=== PATIENT | female | born 1995 | race Caucasian/White ===

== ENCOUNTER 2019-11-11 10:41 | Emergency (ER) | payer OTHER ==
[~2019-11-11] VITALS: Ht 154.9 cm; Wt 90.7 kg
[2019-11-11 10:43] VITALS: BP 134/80
--- NOTE | 2019-11-11 11:01 | NUR ---
24 YEAR OLD FEMALE COMPLAINS OF DIZZINESS X 2 WEEKS. PT STATES SHE HAS BEEN FEELING MORE WEAK AND TIRED WELL. PT REGINA FITZPATRICK HAS DIABETES AND HAS CONCERNS BECAUSE HER BLOOD SUGAR WAS 70. PT AOX4, BREATHING EVEN AND UNLABORED, SKIN WARM AND DRY. BED IN LOWEST POSITION, LOCKED, BED RAIL UPX1. PMH - DENIES ALLERGIES - NKA
--- NOTE | 2019-11-11 11:13 | NUR ---
URINE DIP STICK AND URINE TEST DONE BY [facility]. RESULTS GIVEN TO AND CHARTED BY JOSE M ALCANTAR.
--- NOTE | 2019-11-11 11:33 | NUR ---
ERMD AT BEDSIDE
--- NOTE | 2019-11-11 11:55 | NUR ---
EKG DONE BY RD LOUISE. REPORTED TO AND CHARTED BY JOSE M ALCANTAR.
[2019-11-11 12:43] LABS: BASOPHILS % (AUTO) 0.4 % (0.0-2.0); EOSINOPHILS # (AUTO) 0.2 K/uL (0-0.4); EOSINOPHILS % (AUTO) 1.9 % (0.0-4.0); HEMATOCRIT 36.6 % (36-48); HEMOGLOBIN 12.3 g/dL (12.0-16.0); LYMPHOCYTES # (AUTO) 1.8 K/uL (2.5-16.5); LYMPHOCYTES % (AUTO) 18.5 % (20.5-51.1); MEAN CORPUSCULAR HEMOGLOBIN 30 pg (27-31); MEAN CORPUSCULAR HGB CONC 34 g/dL (33-37); MEAN CORPUSCULAR VOLUME 89.2 fL (80-94); MONOCYTES # (AUTO) 0.5 K/uL (0.8-1.0); MONOCYTES % (AUTO) 5.5 % (1.7-9.3); NEUTROPHILS # (AUTO) 7.1 K/uL (1.8-7.7); NEUTROPHILS % (AUTO) 73.7 % (42.2-75.2); PLATELET COUNT (AUTO) 392 K/uL (140-450); RED BLOOD CELL COUNT(AUTO) 4.11 MIL/uL (4.20-5.40); RED CELL DISTRIBUTION WIDTH 14.4 % (11.6-13.7); WHITE BLOOD COUNT (AUTO) 9.6 K/uL (4.8-10.8)
[2019-11-11 13:43] LABS: ALBUMIN 3.6 g/dL (3.4-5.0); ANION GAP 15.7 (8-16); CARBON DIOXIDE 24.9 mmol/L (21-32); CREATININE 0.8 mg/dL (0.6-1.3); POTASSIUM 3.6 mmol/L (3.5-5.1); TOTAL BILIRUBIN 0.5 mg/dL (0.0-1.0)
[2019-11-11 13:48] LABS: BARBITURATE, URINE NEGATIVE ng/ml (NEG <=200); BENZODIAZEPINE, URINE NEGATIVE ng/mL (NEG <=200); CANNABINOID, URINE NEGATIVE ng/mL (NEG <=50); COCAINE, URINE NEGATIVE ng/mL (NEG <=300); OPIATE, URINE NEGATIVE ng/mL (NEG <=2000); PHENCYCLIDINE SCREEN,URINE NEGATIVE ng/mL (NEG <=25)
[2019-11-11 14:09] LABS: FREE T4 (FREE THYROXINE) 1.03 ng/dL (0.76-1.46); THYROID STIMULATING HORMONE 3.02 uIU/mL (0.34-3.74)
--- NOTE | 2019-11-11 14:10 | NUR ---
PT RESTING WITH EYES CLOSED, BREATHING EVEN AND UNLABORED.
[2019-11-11 14:28] VITALS: BP 107/75
--- NOTE | 2019-11-11 14:28 | NUR ---
Patient discharged with v/s stable. Written and verbal after care instructions about weakness given and explained. Patient verbalized understanding. Ambulatory with steady gait. All questions addressed prior to discharge. Advised to follow up with PMD.
== END 2019-11-11 14:28 | disposition home or self-care (01) ==
LOC: MED 10:41
DX: R53.1 Weakness (principal); Z88.0 Allergy status to penicillin
CPT/HCPCS: 36415; 80053; 80305; 81002; 81025; 82948; 83690; 84439; 84443; 85025; 93005; 99284

== ENCOUNTER 2021-05-15 10:11 | Emergency (ER) | payer OTHER ==
[~2021-05-15] VITALS: Ht 154.9 cm; Wt 89.8 kg
[2021-05-15 10:32] VITALS: BP 119/83
[2021-05-15] MEDS ORDERED: NACL 0.9% 1,000 ML IV SCH (10:40)
[2021-05-15] MEDS ORDERED: ONDANSETRON 4 MG/2 ML VIAL IVP ONE (10:40)
[2021-05-15] MEDS ORDERED: KETOROLAC 15 MG/ML VIAL IVP ONE (10:40)
--- NOTE | 2021-05-15 10:40 | NUR ---
PT MOVED FROM LOBBY TO CHAIR E
--- NOTE | 2021-05-15 11:00 | NUR ---
BLOODWORK COLLECTED AND WALKED TO LAB
--- NOTE | 2021-05-15 11:00 | NUR ---
25 Y/O FEMALE C/O ABD PAIN SINCE LAST NIGHT. WITH NAUSEA/VOMITING/DIARRHEA. TOOK TUMS WITH NO RELIEF. PT STATES POSSIBLE FOOD POISONING FROM EATING GU[place]AMOLE. 12/10 PAIN. PT STATED HER LAST EPISOIDE OF N/V/D WAS THIS AM. PT DENIES ANY CHEST PAIN/SOB. PT CURRENTLY A&OX4, SKIN DRY AND INTACT. MEDHX: DENIES ALLERIGES: BETTEN
--- NOTE | 2021-05-15 11:18 | NUR ---
DR YEE EXAMINING PT
[2021-05-15 11:23] LABS: BASOPHILS # (AUTO) 0.1 K/uL (0.00-0.22); BASOPHILS % (AUTO) 0.4 % (0.0-2.0); HEMATOCRIT 42.8 % (36-48); HEMOGLOBIN 14.6 g/dL (12.0-16.0); LYMPHOCYTES # (AUTO) 0.4 K/uL (2.5-16.5); LYMPHOCYTES % (AUTO) 2.1 % (20.5-51.1); MEAN CORPUSCULAR HEMOGLOBIN 30 pg (27-31); MEAN CORPUSCULAR HGB CONC 34 g/dL (33-37); MEAN CORPUSCULAR VOLUME 88.4 fL (80-94); MONOCYTES # (AUTO) 0.4 K/uL (0.8-1.0); MONOCYTES % (AUTO) 2.2 % (1.7-9.3); NEUTROPHILS # (AUTO) 16.2 K/uL (1.8-7.7); NEUTROPHILS % (AUTO) 95.3 % (42.2-75.2); PLATELET COUNT (AUTO) 399 K/uL (140-450); RED BLOOD CELL COUNT(AUTO) 4.84 MIL/uL (4.20-5.40); RED CELL DISTRIBUTION WIDTH 14.1 % (11.6-13.7); WHITE BLOOD COUNT (AUTO) 17.1 K/uL (4.8-10.8)
[2021-05-15] MEDS ORDERED: LOPE-289 PO (11:32)
[2021-05-15] MEDS ORDERED: ONDA8TAB87 PO (11:32)
[2021-05-15] MEDS ORDERED: CIPR500T4 PO (11:32)
[2021-05-15] MEDS ORDERED: IBUP-2213 PO (11:32)
[2021-05-15 11:36] LABS: ALBUMIN 3.8 g/dL (3.4-5.0); ANION GAP 16.8 (8-16); CREATININE 0.7 mg/dL (0.6-1.3); POTASSIUM 3.8 mmol/L (3.5-5.1); TOTAL BILIRUBIN 1.2 mg/dL (0.0-1.0)
[2021-05-15 12:26] VITALS: BP 102/66
--- NOTE | 2021-05-15 12:27 | NUR ---
Patient discharged with v/s stable. Written and verbal after care instructions given and explained. Patient alert, oriented and verbalized understanding of instructions. Ambulatory with steady gait. All questions addressed prior to discharge. ID band removed. Patient advised to follow up with PMD. Rx of ZOFRAN, CIPRO, IBUPROFEN, AND IMODIUM given. Patient educated on indication of medication including possible reaction and side effects. Opportunity to ask questions provided and answered.
== END 2021-05-15 12:27 | disposition home or self-care (01) ==
LOC: MED 10:11
DX: N39.0 Urinary tract infection, site not specified (principal); R11.2 Nausea with vomiting, unspecified; R19.7 Diarrhea, unspecified; Z88.0 Allergy status to penicillin; Z79.899 Other long term (current) drug therapy
CPT/HCPCS: 36415; 80053; 81002; 81025; 83690; 85025; 96374; 96375; 99284; J1885; J2405; J7030

== ENCOUNTER 2021-08-31 20:15 | Emergency (ER) | payer OTHER ==
[~2021-08-31] VITALS: Ht 154.9 cm; Wt 90.3 kg
[~2021-08-31 20:15] MED LIST: CIPR500T4 PO; IBUP-2213 PO; LOPE-289 PO; ONDA8TAB87 PO
[2021-08-31 20:34] VITALS: BP 122/77
--- NOTE | 2021-08-31 20:38 | NUR ---
patient to the bathroom for urine collection
--- NOTE | 2021-08-31 20:41 | NUR ---
patient to lobby
--- NOTE | 2021-08-31 21:44 | NUR ---
PATIENT AMBULATED TO BED 9
--- NOTE | 2021-08-31 22:10 | NUR ---
25 Y/O FEMALE BIBS, C/O NAUSEA AND LOMBARDI X2 DAYS. PT STATES SHE HAS BEEN FFEELING FULL AFTER EATING ONLY SMALL AMOUNTS AND HAS HAD A LOSS OF APETITE. PT ALSO STATES SHE HAS BEEN FATIGUED. DENIES VOMITING OR DIARRHEA. NO DIZZINESS, FEVER, OR COUGH. PT IS SITTING IN BED IN LOWEST SETTING, HOB RAISED, AND RAILS UP X1. PT AMBULATES W/O ASSISTANCE, AND HAS UNLABORED BREATHING AND SPEAKING IN FULL SENTENCES. DENIESPMH/RX ALL: PCN
--- NOTE | 2021-08-31 22:16 | NUR ---
Dr. Castle examining patient.
[2021-08-31] MEDS ORDERED: KETOROLAC 60 MG/2 ML VIAL IM ONE (22:20)
--- NOTE | 2021-08-31 22:20 | NUR ---
Keiko gramajo in [facility] - 08/31/21 at 2230 by [email or web address] ER MD AT BEDSIDE
[2021-08-31] MEDS ORDERED: CIPR500T4 PO (23:12)
[2021-08-31] MEDS ORDERED: ONDA8TAB87 PO (23:12)
[2021-08-31] MEDS ORDERED: IBUP-2213 PO (23:12)
[2021-08-31 23:31] VITALS: BP 122/77
--- NOTE | 2021-08-31 23:32 | NUR ---
Patient discharged with v/s stable. Written and verbal after care instructions given and explained. Patient alert, oriented and verbalized understanding of instructions. Ambulatory with steady gait. All questions addressed prior to discharge. ID band removed. Patient advised to follow up with PMD. Rx of ZOFRAN, CIPRO, AND IBUPROFEN given. Patient educated on indication of medication including possible reaction and side effects. Opportunity to ask questions provided and answered. VSS, A/OX4, AMBULATORY, UNLABORED BREATHING, AND CALM DEMEANOR.
== END 2021-08-31 23:32 | disposition home or self-care (01) ==
LOC: MED 20:15
DX: N39.0 Urinary tract infection, site not specified (principal); R11.0 Nausea; R51.9 Headache, unspecified; Z79.899 Other long term (current) drug therapy; Z88.0 Allergy status to penicillin
CPT/HCPCS: 81002; 81025; 96372; 99283; J1885

== ENCOUNTER 2021-09-19 20:17 | Emergency (ER) | payer OTHER ==
[~2021-09-19] VITALS: Ht 154.9 cm; Wt 92.6 kg
[2021-09-19 21:04] VITALS: BP 101/64
--- NOTE | 2021-09-19 21:10 | NUR ---
PT TAKEN TO BED 2.
--- NOTE | 2021-09-19 21:11 | NUR ---
Dr. Ojeda examming patient.
--- NOTE | 2021-09-19 21:49 | NUR ---
XRAY AT BEDSIDE
--- NOTE | 2021-09-19 22:01 | NUR ---
Note undone in EDM - 09/19/21 at 2206 by [email or web address] 25 Y/O FEMALE BIBS FROM HOME, C/O PAIN TO LEFT THUMB X1 DAY. PT STATSE SHE WAS MOVING BOXES LAST NIGHT AND "BENT HER THUMB BACK." PT STATES SHE HAS NO BRUISING/SWELLING OR OBVIOUS DEFORMITIES. CMS INTACT, LOSS OF ROMDUE TO PAIN. UNLABORED BREATHING, AMBULATORY, A/OX4, GCS-15. PT SAW URGENT CARE EARLIER TODAY FOR SAME AND CLAIMS UC DID NOT TAKE XRAYS. PT SEATED IN BED WITH HOB RAISED, BED IN LOWEST SETTING, AND RAILS UP X1. HX";
--- NOTE | 2021-09-19 22:02 | NUR ---
25 Y/O FEMALE BIBS FROM HOME, C/O PAIN TO LEFT THUMB X1 DAY. PT STATSE SHE WAS MOVING BOXES LAST NIGHT AND "BENT HER THUMB BACK." PT STATES SHE HAS NO BRUISING/SWELLING OR OBVIOUS DEFORMITIES. CMS INTACT, LOSS OF ROMDUE TO PAIN. UNLABORED BREATHING, AMBULATORY, A/OX4, GCS-15. PT SAW URGENT CARE EARLIER TODAY FOR SAME AND CLAIMS UC DID NOT TAKE XRAYS. PT SEATED IN BED WITH HOB RAISED, BED IN LOWEST SETTING, AND RAILS UP X1. NO PMH ALLERGY TO PCN
[2021-09-19 22:30] VITALS: BP 104/66
--- NOTE | 2021-09-19 22:30 | NUR ---
Patient discharged with v/s stable. Written and verbal after care instructions given and explained. Patient verbalized understanding. Ambulatory with steady gait. All questions addressed prior to discharge. Advised to follow up with PMD. VSS, A/OX4, UNLABORED BREATHING, AMBULATORY, AND CALM DEMEANOR.
== END 2021-09-19 22:30 | disposition home or self-care (01) ==
LOC: MED 20:17
DX: S63.602A Unspecified sprain of left thumb, initial encounter (principal); Z88.0 Allergy status to penicillin; X58.XXXA Exposure to other specified factors, initial encounter; Y93.89 Activity, other specified; Y92.89 Other specified places as the place of occurrence of the external cause; Y99.8 Other external cause status
CPT/HCPCS: 73130; 99283; Q0092

== ENCOUNTER 2022-03-01 13:48 | Emergency (ER) | payer OTHER ==
[~2022-03-01] VITALS: Ht 162.6 cm; Wt 90.7 kg
[2022-03-01 15:00] VITALS: BP 136/74
--- NOTE | 2022-03-01 15:34 | NUR ---
TO ER BED 3
--- NOTE | 2022-03-01 15:44 | NUR ---
WALKED IN C/O NVD ONSET 2 DAYS. STATES NAUSEA AND VOMITING HAS STOPPED BUT STATES DIARRHEA IS STILL ONGOING. AFEBRILE AT TRIAGE. LMP 10/16. URINE COLLECTED PMH: DENIES ALLERGIC TO PCN
[2022-03-01] MEDS ORDERED: KETOROLAC 15 MG/ML VIAL IM ONE (16:45)
[2022-03-01] MEDS ORDERED: LIDOCAINE 5% 1 EA PATCH TP SCH (16:45)
[2022-03-01 17:09] VITALS: BP 132/68
[2022-03-01] MEDS ORDERED: ONDA-188 PO (17:15)
[2022-03-01] MEDS ORDERED: IBUP-1842 PO (17:15)
[2022-03-01] MEDS ORDERED: CEPH-588 PO (17:19)
--- NOTE | 2022-03-01 17:50 | NUR ---
Patient discharged with v/s stable. Written and verbal after care instructions given and explained. Patient alert, oriented and verbalized understanding of instructions. Ambulatory with steady gait. All questions addressed prior to discharge. ID band removed. Patient advised to follow up with PMD. Patient educated on indication of medication including possible reaction and side effects. Opportunity to ask questions provided and answered.
== END 2022-03-01 17:50 | disposition home or self-care (01) ==
LOC: MED 13:48
DX: A05.9 Bacterial foodborne intoxication, unspecified (principal); R11.2 Nausea with vomiting, unspecified; R19.7 Diarrhea, unspecified; Z88.0 Allergy status to penicillin; Z79.899 Other long term (current) drug therapy
CPT/HCPCS: 81002; 81025; 96372; 99283; J1885

== ENCOUNTER 2022-06-23 12:22 | Emergency (ER) | payer OTHER ==
[~2022-06-23] VITALS: Ht 154.9 cm; Wt 93.4 kg
[~2022-06-23 12:22] MED LIST changes: +CEPH-588 PO; +IBUP-1842 PO; +ONDA-188 PO
[2022-06-23 12:32] VITALS: BP 135/76
--- NOTE | 2022-06-23 12:40 | NUR ---
BIB SELF C/O RECTAL BLEEDING X 3 DAYS. LMP 06/21/22. PMH:DENIES
[2022-06-23] MEDS ORDERED: PHEN57OI TP (15:32)
[2022-06-23] MEDS ORDERED: MIRABULK PO (15:32)
[2022-06-23] MEDS ORDERED: DOCU-299 PO (15:32)
[2022-06-23] MEDS ORDERED: HYDR-2734 TP (15:32)
[2022-06-23 15:50] VITALS: BP 126/72
--- NOTE | 2022-06-23 15:50 | NUR ---
Patient discharged with v/s stable. Written and verbal after care instructions given and explained. Patient alert, oriented and verbalized understanding of instructions. Ambulatory with steady gait. All questions addressed prior to discharge. ID band removed. Patient advised to follow up with PMD. Rx of COLACE, MIRALAX, ANUSOL, HEMORRHOIDAL OINTMENT given. Patient educated on indication of medication including possible reaction and side effects. Opportunity to ask questions provided and answered.
== END 2022-06-23 15:50 | disposition home or self-care (01) ==
LOC: MED 12:22
DX: K64.9 Unspecified hemorrhoids (principal); R03.0 Elevated blood-pressure reading, without diagnosis of hypertension; K59.00 Constipation, unspecified; Z88.0 Allergy status to penicillin; Z79.899 Other long term (current) drug therapy
CPT/HCPCS: 99283